=== PATIENT | male | born 1945 | race Caucasian/White ===

== ENCOUNTER 2024-07-25 09:35 | Outpatient (CLI) | payer MEDICARE, OTHER | END 2024-07-25 23:59 | disposition home or self-care (01) | LOC: US 09:35 | PROVIDERS: ATTEND Physician Assistant | DX: K76.0 Fatty (change of) liver, not elsewhere classified (principal); R16.0 Hepatomegaly, not elsewhere classified; R74.01 Elevation of levels of liver transaminase levels | CPT/HCPCS: 76700 ==